=== PATIENT | male | born 1990 | race Caucasian/White ===

== ENCOUNTER 2019-11-29 17:39 | Emergency (ER) | payer OTHER, SELFPAY ==
[2019-11-29] VITALS (7 sets, daily range): BP systolic 123–155; BP diastolic 76–98; PULSE 61–86; RESP 15–20; TEMP 35.7; O2SAT 98–100; BMI 31.1
--- NOTE | 2019-11-29 18:10 | ED.VIS.GEN ---
History of Present Illness Chief Complaint: Upper Extremity Injury Detail of Chief Complaint: Shoulder injury Informant: Patient Onset: Today Current Severity: Severe Maximum Severity: Severe Narrative: Patient presents with a right shoulder injury. He states he was climbing down a ladder from a wagon and fell approximately 3 feet. His elbow hit the ground and he has severe right shoulder pain. He denies head or neck pain. He denies rib pain. He states he has some numbness over the shoulder area. He is right-hand dominant. He did take ibuprofen prior to arrival. Past Medical History - Allergies and Home Meds Allergies/Adverse Reactions: Allergies No Known Allergies Allergy (Verified 11/29/19 17:42) Primary Care Physician: Cj Nicole MD [Primary Care Provider] - Past Medical History: None Lives: Spouse/ Significant Other Review of Systems General: Denies: Chills, Fever Eyes: Denies: Visual changes - bilaterally ENT: Denies: Bilateral ear pain Cardiovascular: Denies: Chest pain Respiratory: Denies: Dyspnea, Cough Gastrointestinal: Denies: Abdominal pain, Nausea, Vomiting, Diarrhea Musculoskeletal: Reports: Extremity Pain. Denies: Neck pain, Back pain Skin: Denies: Rash Neurological: Reports: Numbness. Denies: Headache Physical Exam Vital Signs/Narrative: Vital Signs Temp Pulse Resp BP Pulse Ox 11/29/19 17:40 96.3 F L 68 18 145/98 H 98 Inital Vital Signs reviewed: Yes General: Well nourished, Well developed Head: Normocephalic Eyes: Perrl, EOMI ENT: Moist mucous membranes Neck: Supple, - - No C-spine tenderness. Cardiovascular: Regular rate, Regular rhythm Respiratory: No distress, CTA bilaterally Abdomen: Soft, Nontender Back: Nontender Extremities: - - No tenderness around the humeral head. No tenderness of the clavicle or scapula. No tenderness at the elbow or forearm. Neurological: Alert, Oriented x3, - - Increased pain with any movement of the right shoulder, therefore strength is difficult to test. Sensation in his hand is normal with good cap refill. Is a strong hand grasp. Diagnostic/Tx/Re-eval Impressions Humerus X-Ray 11/29/19 18:46 IMPRESSION: Anterior glenohumeral dislocation. Electronically Signed: Shola Ureña MD at 19:37 EST Tel , Service support , 11/29/19 18:46 Humerus min 2 Views [RAD] Stat 11/29/19 19:53 Shoulder min 2 Views [RAD] Stat - Medical Decision Making She was given morphine and Zofran for pain control. Shoulder x-ray does reveal a dislocation. Patient is consented for procedural sedation. Patient is placed on surveillance system monitor and oxygen. Propofol, a total of 140 cc was given. Patient's right shoulder was reduced. Post reduction x-rays revealed good position. Patient is recovered well and is tolerating p.o. He will be given a prescription for Mckinney and will follow-up with Dr. Garcia, on-call for orthopedics. ED Disposition - Plan for ED Patient: Disposition: Home or Assisted Living Diagnosis: Shoulder dislocation Instructions: DISLOCATION: SHOULDER (Reduced) Prescriptions: Hydrocodone Bitart/Apap 5-325 [Mckinney 5MG-325MG] 1 tablet PO Q6H PRN PRN 3 Days #10 tablet PRN Reason: Pain Transmission Status: Received by [id number] Referrals: Bc Garcia MD [STAFF PHYSICIAN] - 3-5 Days
[2019-11-29] MEDS: Morphine 4 MG/ML Syringe IV ×2 (18:24→19:12)
[2019-11-29] MEDS: Ondansetron 4 MG/2 ML Vial IV (18:24)
[2019-11-29] MEDS: 0.9% Normal Saline 1,000 ML 150 ML IV (18:25)
--- NOTE | 2019-11-29 18:46 | RAD_ITS ---
STUDY: X-RAY - RIGHT HUMERUS REASON FOR EXAM: Male, 29 years old. PT FELL OFF LADDER ABOUT 3 FT. HIT HEAD AND LANDED ON ELBOW. HAVING SEVERE SHOULDER PAIN TECHNIQUE: 2 view(s) of the humerus. COMPARISON: None. FINDINGS: Anterior glenohumeral dislocation. No fractures are seen. Soft tissues are intact. RAD/Humerus min 2 Views IMPRESSION: Anterior glenohumeral dislocation. Electronically Signed: Shola Ureña MD at 19:37 EST Tel , Service support ,
[2019-11-29] MEDS: Propofol 200 MG/20 ML Vial IV BOLUS (19:52)
--- NOTE | 2019-11-29 19:53 | RAD_ITS ---
STUDY: X-RAY - RIGHT SHOULDER REASON FOR EXAM: Male, 29 years old. POST REDUCTION SHOULDER DISLOCATION TECHNIQUE: 2 view(s) of the shoulder. COMPARISON: None. FINDINGS: Successful glenohumeral reduction. Normal acromioclavicular joint. Normal acromion. Normal humeral head and visualized proximal humerus. The soft tissue structures are unremarkable. Normal visualized pulmonary apex. RAD/Shoulder min 2 Views IMPRESSION: Successful glenohumeral reduction. Electronically Signed: Shola Ureña MD at 20:39 EST Tel , Service support ,
== END 2019-11-29 20:43 | disposition home or self-care (01) ==
PROVIDERS: Emergency Provider Emergency Medicine; PCP Family Medicine
DX: S43.014A Anterior dislocation of right humerus, initial encounter (principal); W11.XXXA Fall on and from ladder, initial encounter; Y93.39 Activity, other involving climbing, rappelling and jumping off; Y92.9 Unspecified place or not applicable
CPT/HCPCS: 23650; 73030; 73060; 96361; 96374; 96375; 96376; 99152; 99284; J7030; A4216; J2405